=== PATIENT | male | born 1960 | race Caucasian/White ===

== ENCOUNTER 2020-01-12 09:34 | Outpatient (CLI) | payer MEDICARE, BC, SELFPAY ==
[2020-01-12 10:08] LABS: Creatinine Urine 101.9 mg/dL; Total Protein Urine Random 153 mg/dL
[2020-01-12 10:14] LABS: Albumin Level 4.5 g/dL (3.5-5.1); Blood Urea Nitrogen 27 mg/dL (9-20); Calcium 9.5 mg/dL (8.4-10.2); Carbon Dioxide 29 mmol/L (22-30); Chloride 105 mmol/L (98-107); Estimated Glomerular Filt Rate 36; Glucose 159 mg/dL (75-110); Phosphorus 3.5 mg/dL (2.5-4.5); Potassium 4.5 mmol/L (3.4-5.0); Sodium 142 mmol/L (137-145)
[2020-01-12 10:24] LABS: Parathyroid Intact 116.8 pg/mL (7.5-53.5)
== END 2020-01-12 09:35 | disposition home or self-care (01) ==
PROVIDERS: PCP Family Medicine; Visit Provider Internal Medicine Nephrology
DX: N18.3 Chronic kidney disease, stage 3 (moderate) (principal)
CPT/HCPCS: 36415; 80069; 82306; 82570; 83970; 84156

== ENCOUNTER 2020-07-03 12:33 | Outpatient (CLI) | payer MEDICARE, BC, SELFPAY ==
[2020-07-03 13:16] LABS: Creatinine Urine 105.8 mg/dL; Total Protein Urine Random 97 mg/dL
[2020-07-03 13:23] LABS: Alanine Aminotransferase 34 U/L (4-50); Albumin Level 4.6 g/dL (3.5-5.1); Anion Gap 10 mmol/L (8-16); Blood Urea Nitrogen 34 mg/dL (9-20); Calcium 9.7 mg/dL (8.4-10.2); Carbon Dioxide 29 mmol/L (22-30); Chloride 106 mmol/L (98-107); Cholesterol 109 mg/dL (0-200); Estimated Glomerular Filt Rate 34; Glucose 127 mg/dL (75-110); HDL Direct 31 mg/dL; Phosphorus 3.7 mg/dL (2.5-4.5); Potassium 4.6 mmol/L (3.4-5.0); Sodium 145 mmol/L (137-145); Triglycerides 267 mg/dL (<150)
[2020-07-03 13:33] LABS: LDL Cholesterol Direct 36 mg/dL
== END 2020-07-03 12:34 | disposition home or self-care (01) ==
LOC: ANHLAB 12:38
PROVIDERS: PCP Family Medicine; Visit Provider Internal Medicine Nephrology
DX: N18.30 Chronic kidney disease, stage 3 unspecified (principal); E78.5 Hyperlipidemia, unspecified
CPT/HCPCS: 36415; 80061; 80069; 82570; 84156; 84460

== ENCOUNTER 2021-08-27 15:22 | Outpatient (RCR) | payer MEDICARE, SELFPAY ==
--- NOTE | 2021-08-27 16:49 | REHOPWC ---
SEATING EVALUATION NOTIFICATION This is to notify provider that Akash Gifford participated in a power mobility device evaluation today. Recommendations were made specific to patient's needs. Seating Assessment documentation has been completed for detailed information on required equipment. The mobility device provider for this case is Tala from [facility]. Please note that no further care plan will be developed on this account. Thank you for referring this patient to [facility]. Please review, sign, date and return this discharge summary LASHAUN. I have been updated about the patient's current status and I agree with discharge from the above service at this time. Referring Physician Date
== END 2021-08-28 12:02 | disposition home or self-care (01) ==
LOC: ANHPT 15:22
PROVIDERS: PCP Family Medicine
DX: S14.109D Unspecified injury at unspecified level of cervical spinal cord, subsequent encounter (principal); I10 Essential (primary) hypertension; N28.9 Disorder of kidney and ureter, unspecified; Z99.3 Dependence on wheelchair
CPT/HCPCS: 97163

== ENCOUNTER → 2021-11-22 13:23 | Outpatient (CLI) | payer MEDICARE, SELFPAY ==
--- NOTE | ~2021-11-22 | XR_ITS ---
EXAMINATION: XR ankle LT 2V DATE: 11/22/2021 13:54 INDICATION: Left ankle pain TECHNIQUE: Anteroposterior, oblique, mortise, and lateral views of the left ankle were obtained. COMPARISON: None. FINDINGS: Alignment is normal. No fracture. Mild osteoarthritis at the second tarsal metatarsal and first metat arsophalangeal joints. Moderate-sized Achilles calcaneal spur. Small plantar calcaneal spur and small heterotopic ossicles along the plantar aponeurosis. Diffuse soft tissue swelling with subcutaneous e piedad about the ankle and extending over the dorsum of the foot. No left ankle joint effusion. IMPRESSION: 1. Mild degenerative changes as detailed above. No acute osseous abnormality. Reviewed, dictated and finalized at location B.
== END ==
PROVIDERS: PCP Family Medicine; Visit Provider Nurse Practitioner Family
DX: M25.572 Pain in left ankle and joints of left foot (principal)
CPT/HCPCS: 73600

== ENCOUNTER 2022-06-27 07:28 | Outpatient (CLI) | payer MEDICARE, SELFPAY ==
--- NOTE | 2022-07-27 15:39 | WPDSLEEPSTUD ---
Sleep Study Date of Study: 06/27/22 Ordering Provider: ASHLI Pelletier Interpreting Physician: Mariluz Ordoñez DO Sleep Study Type: BiPAP Titration Height: 1.83 m Weight: 113.398 kg Body Mass Index: 33.9 Neck Circumference (inches): 16.5 [place]: 12 Reason for Sleep Study Air hunger with CPAP use. On 02/2017, he had a Split night PSG that showed an AHI of 105. Adequate titration of CPAP to [id number] improved AHI to 2.2. He was later changed to APAP 8-16 cm H2O because he felt like he wasn't getting enough air. It was then changed to APAP 10-20 cm H2O. He still has the same complaint. Sleep History The patient is a 61-year-old male with hypertension, hyperlipidemia, chronic kidney disease, history of deep venous thrombosis, history of tobacco use and sleep apnea that had a sleep study ordered by the pulmonary group for evaluation of the patient's air hunger. The patient denies awakening from sleep short of breath. He denies awakening at night with heartburn, belching or cough. He frequently snores loud enough that others complain. He frequently has trouble sleeping when he has a cold. He denies waking up gasping for air throughout the night. He frequently has breathing problems at night observed by himself or others. He denies sweating excessively at night. He denies having heart palpitations or irregular heartbeats during the night. He occasionally falls asleep during the day but never while driving. He denies sleep paralysis, cataplexy and hypnagogic / hypnopompic hallucinations. He denies having trouble at school or work due to sleepiness. He denies feeling afraid of going to sleep. He denies having nightmares and denies remembering his dreams. He denies having thoughts racing through his mind. He rarely feels sad, depressed or anxious. He occasionally has muscular tension. He rarely notices parts of his body jerk. He occasionally kicks during the night. He rarely has crawling and aching feelings in his legs and rarely has leg pain during the night. He denies grinding his teeth during sleep and rarely awakens with morning jaw pain. He is rarely bothered by pain during the day and rarely awakened by pain during the night. He frequently wakes up feeling stiff in the morning. He frequently wakes up with sore achy muscles. He occasionally wakes up the patient, spine or other joints. He goes to bed between 10 to 10:30 p.m. on both weekdays and weekends. The amount of time it takes for him to fall sleep is variable. He wakes up 2-3 times throughout the night to urinate. He can take in 1-2 hours to fall back asleep. He wakes up at 7:00 a.m. on weekdays and between 7-8 a.m. on the weekends. He typically gets 3-4 hours of sleep per night. He will stay in bed for 1-2 hours after waking up in the morning. He currently lives alone. He does not consume any caffeinated beverages within 2 hours of bedtime. He does not engage in physical exercise before bedtime. He will watch television before falling asleep. He will take naps in the afternoon or the evening and they are refreshing. He drinks caffeinated iced tea throughout the day. He is a former smoker. He denies alcohol and recreational drug use. [facility] Past Medical History Medical History Acute embolism and thrombosis of unspecified deep veins of distal lower extremity, bilateral Adult BMI 36.0-36.9 kg/sq m BMI 37.0-37.9, adult Body mass index [BMI] 32.0-32.9, adult (09/21/18) Body mass index [BMI] 36.0-36.9, adult (04/22/18) Body mass index [BMI] 38.0-38.9, adult (04/27/19) Chronic kidney disease, unspecified Decreased platelet count Decreased renal function Dietary counseling and surveillance (10/18/15) Dizziness Elevated fasting glucose Encounter for screening colonoscopy Essential (primary) hypertension High triglycerides History of DVT (deep vein thrombosis) Hyperlipidemia Hypertension Low kidney funct
[2022-07-27 15:53] VITALS: BMI 33.9
--- NOTE | 2023-08-21 13:08 | SLEEP ---
new call on [id number]
== END 2022-06-28 06:36 | disposition home or self-care (01) ==
PROVIDERS: PCP Family Medicine; Visit Provider Physician Assistant
DX: G47.33 Obstructive sleep apnea (adult) (pediatric) (principal); Z87.891 Personal history of nicotine dependence
CPT/HCPCS: 95811

== ENCOUNTER 2023-07-29 06:18 | Outpatient (CLI) | payer MEDICARE, SELFPAY ==
--- NOTE | 2023-08-21 15:58 | WPDSLEEPSTUD ---
Sleep Study Date of Study: 07/29/23 Ordering Provider: ASHLI Pelletier Interpreting Physician: Leigh Hall MD Sleep Study Type: Polysomnogram Height: 1.83 m Weight: 111.13 kg Body Mass Index: 33.2 Neck Circumference (inches): 13.5 [place]: 8 Reason for Sleep Study Known obstructive sleep apnea, re-evaluation for Inspire device * 02/2017 - Split night PSG - Severe REBEKA with AHI 105. Adequate titration of CPAP to [id number] improved AHI to 2.2. Sleep History Akash Gifford is a 62-year-old male with hypertension, hyperlipidemia, chronic kidney disease, history of deep venous thrombosis, history of tobacco use and sleep apnea. The response to [facility] sleep questionnaire from his 06/27/2022 study are used in this report. He had severe obstructive sleep apnea on a sleep study in 2016, the apnea-hypopnea index was 105. He had a difficult time tolerating auto PAP, had a in-lab PAP titration on June 27, 2022 with recommended pressures of 19/15. He had a difficult time tolerating this pressure; it was decreased to BiPAP 17/13 with adjustments in his humidity. He does not awaken from sleep feeling short of breath. He dose not awake at night with heartburn, belching or cough. He frequently snores loudly enough that others complain. He frequently has trouble sleeping when he has a cold. He denies waking up gasping for air at night. He frequently has breathing problems at night. He denies sweating excessively at night. He denies having heart palpitations or irregular heartbeats during the night. He occasionally falls asleep during the day but never while driving. He denies having muscle weakness with strong emotion, feeling paralyzed on waking or falling asleep and he denies vivid dreamlike scenes upon waking or upon falling asleep. He denies having daytime difficulties at work due to sleepiness. He is not afraid to go to sleep. He denies having nightmares and denies remembering his dreams. He denies having thoughts racing through his mind. He rarely feels sad, depressed or anxious. He occasionally has muscular tension. He rarely notices parts of his body jerk. He occasionally kicks during the night. He rarely has crawling and aching feelings in his legs and rarely has leg pain during the night. He denies grinding his teeth during sleep and rarely awakens with morning jaw pain. He is rarely bothered by pain during the day and rarely awakened by pain during the night. He frequently wakes up feeling stiff in the morning. He frequently wakes up with sore achy muscles. He occasionally wakes up the patient, spine or other joints. He goes to bed between 10:00 p.m. to 10:30 p.m. on both weekdays and weekends. The amount of time it takes for him to fall sleep is variable. He wakes up 2-3 times throughout the night to urinate. he may require 1-2 hours to return to sleep. He wakes up at 7:00 a.m. on weekdays and between 7:00 a.m.-8:00 a.m. on the weekends. He typically gets 3-4 hours of sleep per night. He takes naps in the afternoon or the evening. A short nap can be refreshing. Habits: Tobacco: former smoker. Caffeine: caffeinated iced tea throughout the day. Alcohol: none Recreational substances: none PMFSH Past Medical History Medical History Acute embolism and thrombosis of unspecified deep veins of distal lower extremity, bilateral Adult BMI 36.0-36.9 kg/sq m BMI 37.0-37.9, adult Body mass index [BMI] 32.0-32.9, adult (09/21/18) Body mass index [BMI] 36.0-36.9, adult (04/22/18) Body mass index [BMI] 38.0-38.9, adult (04/27/19) Chronic kidney disease, unspecified Decreased platelet count Decreased renal function Dietary counseling and surveillance (10/18/15) Dizziness Elevated fasting glucose Encounter for screening colonoscopy Essential (primary) hypertension H/O cataract High triglycerides History of DVT (deep vein thrombosis) Hyperlipidemia Hypertension Low kidney
[2023-08-21 16:03] VITALS: BMI 33.2
== END 2023-07-30 07:34 | disposition home or self-care (01) ==
LOC: ANHCSM 06:18
PROVIDERS: PCP Family Medicine; Visit Provider Physician Assistant
DX: G47.33 Obstructive sleep apnea (adult) (pediatric) (principal); R06.83 Snoring; I10 Essential (primary) hypertension
CPT/HCPCS: 95810

== ENCOUNTER 2024-01-20 09:21 | Outpatient (CLI) | payer MEDICARE, SELFPAY ==
[2024-02-10 19:22] VITALS: BMI 32.5
--- NOTE | 2024-02-10 19:22 | WPDSLEEPSTUD ---
Sleep Study Date of Study: 01/20/24 Ordering Provider: ASHLI Pelletier Interpreting Physician: Mariluz Ordoñez DO Sleep Study Type: Polysomnogram Height: 1.83 m Weight: 108.862 kg Body Mass Index: 32.5 Neck Circumference (inches): 13.5 [place]: 24 Reason for Sleep Study The patient had a polysomnogram on 07/29/2023 that showed an overall AHI of 4.6 with desaturation down to 86%. Previously diagnosed with severe REBEKA (AHI>100 in 2017). On PAP Therapy but wanted to look into Inspire. Sleep History Akash Gifford is a 63-year-old male with hypertension, hyperlipidemia, chronic kidney disease, history of deep venous thrombosis, history of tobacco use and sleep apnea. The response to [facility] sleep questionnaire from his 06/27/2022 study are used in this report. He had severe obstructive sleep apnea on a sleep study in 2017, the apnea-hypopnea index was 105. He had a difficult time tolerating auto PAP, had a in-lab PAP titration on June 27, 2022 with recommended pressures of 19/15. He had a difficult time tolerating this pressure; it was decreased to BiPAP 17/13 with adjustments in his humidity. He does not awaken from sleep feeling short of breath. He dose not awake at night with heartburn, belching or cough. He frequently snores loudly enough that others complain. He frequently has trouble sleeping when he has a cold. He denies waking up gasping for air at night. He frequently has breathing problems at night. He denies sweating excessively at night. He denies having heart palpitations or irregular heartbeats during the night. He occasionally falls asleep during the day but never while driving. He denies having muscle weakness with strong emotion, feeling paralyzed on waking or falling asleep and he denies vivid dreamlike scenes upon waking or upon falling asleep. He denies having daytime difficulties at work due to sleepiness. He is not afraid to go to sleep. He denies having nightmares and denies remembering his dreams. He denies having thoughts racing through his mind. He rarely feels sad, depressed or anxious. He occasionally has muscular tension. He rarely notices parts of his body jerk. He occasionally kicks during the night. He rarely has crawling and aching feelings in his legs and rarely has leg pain during the night. He denies grinding his teeth during sleep and rarely awakens with morning jaw pain. He is rarely bothered by pain during the day and rarely awakened by pain during the night. He frequently wakes up feeling stiff in the morning. He frequently wakes up with sore achy muscles. He occasionally wakes up the patient, spine or other joints. He goes to bed between 10:00 p.m. to 10:30 p.m. on both weekdays and weekends. The amount of time it takes for him to fall sleep is variable. He wakes up 2-3 times throughout the night to urinate. He may require 1-2 hours to return to sleep. He wakes up at 7:00 a.m. on weekdays and between 7:00 a.m.-8:00 a.m. on the weekends. He typically gets 3-4 hours of sleep per night. He takes naps in the afternoon or the evening. A short nap can be refreshing. Habits: Tobacco: former smoker. Caffeine: caffeinated iced tea throughout the day. Alcohol: none Recreational substances: none PMFSH Past Medical History Medical History Acute embolism and thrombosis of unspecified deep veins of distal lower extremity, bilateral Adult BMI 36.0-36.9 kg/sq m BMI 37.0-37.9, adult Body mass index [BMI] 32.0-32.9, adult (09/21/18) Body mass index [BMI] 36.0-36.9, adult (04/22/18) Body mass index [BMI] 38.0-38.9, adult (04/27/19) Chronic kidney disease, unspecified Decreased platelet count Decreased renal function Dietary counseling and surveillance (10/18/15) Dizziness Elevated fasting glucose Encounter for screening colonoscopy Essential (primary) hypertension H/O cataract High triglycerides History of DVT (deep vein thrombosis
== END 2024-01-21 07:19 | disposition home or self-care (01) ==
LOC: ANHCSM 09:21
PROVIDERS: PCP Family Medicine; Visit Provider Physician Assistant
DX: G47.33 Obstructive sleep apnea (adult) (pediatric) (principal); I10 Essential (primary) hypertension
CPT/HCPCS: 95810

== ENCOUNTER → 2024-01-28 13:47 | Outpatient (RCR) | payer MEDICARE, SELFPAY | END | disposition home or self-care (01) | LOC: ANHEH 12-30 09:50 | DX: Z46.1 Encounter for fitting and adjustment of hearing aid (principal) | CPT/HCPCS: 92557 ==

== ENCOUNTER 2024-06-14 01:03 | Day surgery (SDC) | payer MEDICARE, SELFPAY ==
[2024-06-10 10:48] VITALS: BMI 32.5
--- NOTE | 2024-06-10 11:30 | PC.NURSE ---
Spoke with patient regarding medication Eliquis. Pt. verbalizes understanding that the last dose of Eliquis is to be taken on 06/11/2024 and the Endoscopist will instruct them when to restart after the procedure.
--- NOTE | 2024-06-13 15:19 | P.PNAN_ITS ---
Anes - Eval Pre Procedure Procedure: Operation Date: 06/14/24 14:30 Proposed Procedures p Screening Colonoscopy - Juan Mtz MD Date/Time: 06/13/24 15:19 Pre Op Diagnosis: history of polyps Patient Data Age: 63 Gender: M Height: 1.83 m Weight: 108.9 kg Allergies Allergy/AdvReac Type Severity Reaction Status Date / Time Penicillins Allergy Unknown Unknown Verified 06/10/24 10:42 Sulfa (Sulfonamide Allergy Unknown CHILD Verified 06/10/24 10:42 Antibiotics) sulfanilamide Allergy Unknown Unknown Verified 06/10/24 10:42 Home Medications Medication Instructions Recorded Confirmed Type cholecalciferol (vitamin D3) 10 10 mcg PO BID 07/04/21 06/12/24 History mcg (400 unit) capsule berberine-herbal comb no.18 capsule 3 cap PO DAILY 04/15/23 06/12/24 History lisinopril 40 mg tablet See Rx Instructions .Route 08/06/23 06/12/24 Rx .COMPLEX #90 tabs dapagliflozin propanediol 10 mg 10 mg PO DAILY #90 tabs 09/22/23 06/12/24 Rx tablet (Farxiga) rosuvastatin 40 mg tablet See Rx Instructions .Route 12/10/23 06/12/24 Rx .COMPLEX #90 tabs apixaban 5 mg tablet (Eliquis) See Rx Instructions .Route 03/09/24 06/12/24 Rx .COMPLEX #180 tabs aspirin 81 mg tablet,delayed See Rx Instructions .Route 03/09/24 06/12/24 Rx release .COMPLEX #90 tabs dulaglutide 1.5 mg/0.5 mL See Rx Instructions .Route 05/21/24 06/12/24 Rx subcutaneous pen injector .COMPLEX #4 mL (Trulicity) levofloxacin 250 mg tablet 250 mg PO DAILY #10 tabs 06/11/24 Rx Patient hx anesthesia problems: none Family hx anesthesia problems: none Results Review: All pre-operative results and documents have been reviewed as part of the pre- operative evaluation. [facility] Past Medical History Medical History Acute embolism and thrombosis of unspecified deep veins of distal lower extremity, bilateral Body mass index [BMI] 36.0-36.9, adult (04/22/18) Body mass index [BMI] 38.0-38.9, adult (04/27/19) Chronic kidney disease, unspecified Colon polyps Decreased platelet count Decreased renal function Dietary counseling and surveillance (10/18/15) Dizziness Elevated fasting glucose Encounter for screening colonoscopy Encounter for screening for malignant neoplasm of prostate Essential (primary) hypertension H/O cataract High triglycerides History of DVT (deep vein thrombosis) Hyperlipidemia Hypertension Low kidney function Microalbuminuria Mixed hyperlipidemia Obstructive sleep apnea (adult) (pediatric) Screening for malignant neoplasm of prostate Screening for thyroid disorder Screening for thyroid disorder Scrotal pain Sleep apnea SOB (shortness of breath) on exertion Surgical History Surgical History Hx of colonoscopy Family History Family History Father Carcinoma of colon Family history of Alzheimer's disease Mother Alzheimers disease Sibling No problems noted. Other Family history of lung cancer Social History Social History Smoking packs per day: 1 Smoking cigarettes per day: 20.0 Years smoked: 5 Smoking pack-years: 5.00 Smoking status: Former smoker Tobacco type: cigarettes and pipe Second hand tobacco smoke exposure: Yes Smoking end date: 08/18/88 Alcohol intake: never Substance use: never Substance use type: does not use Do You Feel Safe in your Home?: Yes Lack of Transportation: No Lack of Food: Never True Current Housing: I Have Housing Concerned About Future Housing: No Difficulty Paying Gas/Electric Bills: No Difficulty Paying for Meds: No Currently Unemployed: No Education: Associate Degree Difficulty w/ Childcare or Family Care: No Living arrangements: alone Occupation/Education: retired Additional occupation/education comments: [employer]-retired, [employer] grounds keeping, [employer]. Gender identity (if verbalized by the patient): Male Exam Day of Procedure 06/13/24 15:19
[2024-06-14 13:00] VITALS: BP 112/67; PULSE 76; RESP 16; TEMP 35.6; O2SAT 96; BMI 32.0
[2024-06-14 13:09] LABS: Glucose Point of Care 108 mg/dl (65-105)
[2024-06-14] MEDS: LACTATED RINGERS 1,000 ML 150 ML IV CONT (13:16)
--- NOTE | 2024-06-14 13:23 | WPDANESEPPF ---
Anes - Initial Pre Proc Eval Procedure: Operation Date: 06/14/24 14:30 Proposed Procedures p Screening Colonoscopy - Juan Mtz MD Date/Time: 06/14/24 13:23 Surgeon: Juan Mtz MD Pre Op Diagnosis: history of polyps Patient Data Age: 63 Gender: M Height: 1.83 m Weight: 107 kg Last Vital Signs Temp 35.6 C L 06/14/24 13:00 Pulse 76 06/14/24 13:00 Resp 16 06/14/24 13:00 BP 112/67 06/14/24 13:00 Pulse Ox 96 06/14/24 13:00 O2 Del Method Room Air 06/14/24 13:00 Allergies Allergy/AdvReac Type Severity Reaction Status Date / Time Penicillins Allergy Unknown Unknown Verified 06/14/24 12:57 Sulfa (Sulfonamide Allergy Unknown CHILD Verified 06/14/24 12:57 Antibiotics) sulfanilamide Allergy Unknown Unknown Verified 06/14/24 12:57 Home Medications Medication Instructions Recorded Confirmed Type cholecalciferol (vitamin D3) 10 10 mcg PO BID 07/04/21 06/14/24 History mcg (400 unit) capsule berberine-herbal comb no.18 capsule 3 cap PO DAILY 04/15/23 06/14/24 History lisinopril 40 mg tablet See Rx Instructions .Route 08/06/23 06/14/24 Rx .COMPLEX #90 tabs dapagliflozin propanediol 10 mg 10 mg PO DAILY #90 tabs 09/22/23 06/14/24 Rx tablet (Farxiga) rosuvastatin 40 mg tablet See Rx Instructions .Route 12/10/23 06/14/24 Rx .COMPLEX #90 tabs apixaban 5 mg tablet (Eliquis) See Rx Instructions .Route 03/09/24 06/14/24 Rx .COMPLEX #180 tabs aspirin 81 mg tablet,delayed See Rx Instructions .Route 03/09/24 06/14/24 Rx release .COMPLEX #90 tabs dulaglutide 1.5 mg/0.5 mL See Rx Instructions .Route 05/21/24 06/14/24 Rx subcutaneous pen injector .COMPLEX #4 mL (Trulicity) levofloxacin 250 mg tablet 250 mg PO DAILY #10 tabs 06/11/24 06/14/24 Rx Laboratory Tests 06/14/24 13:06 POC Capillary Glucose 108 H mg/dl (65-105) Patient hx anesthesia problems: none Family hx anesthesia problems: none Results Review: All pre-operative results and documents have been reviewed as part of the pre-operative evaluation. [facility] Past Medical History Medical History Acute embolism and thrombosis of unspecified deep veins of distal lower extremity, bilateral Body mass index [BMI] 36.0-36.9, adult (04/22/18) Body mass index [BMI] 38.0-38.9, adult (04/27/19) Chronic kidney disease, unspecified Colon polyps Decreased platelet count Decreased renal function Dietary counseling and surveillance (10/18/15) Dizziness Elevated fasting glucose Encounter for screening colonoscopy Encounter for screening for malignant neoplasm of prostate Essential (primary) hypertension H/O cataract High triglycerides History of DVT (deep vein thrombosis) Hyperlipidemia Hypertension Low kidney function Microalbuminuria Mixed hyperlipidemia Obstructive sleep apnea (adult) (pediatric) Screening for malignant neoplasm of prostate Screening for thyroid disorder Screening for thyroid disorder Scrotal pain Sleep apnea SOB (shortness of breath) on exertion Surgical History Surgical History Hx of colonoscopy Family History Family History Father Carcinoma of colon Family history of Alzheimer's disease Mother Alzheimers disease Sibling No problems noted. Other Family history of lung cancer Social History Social History Smoking packs per day: 1 Smoking cigarettes per day: 20.0 Years smoked: 5 Smoking pack-years: 5.00 Smoking status: Former smoker Tobacco type: cigarettes and pipe Second hand tobacco smoke exposure: Yes Smoking end date: 08/18/88 Alcohol intake: never Substance use: never Substance use type: does not use Do You Feel Safe in your Home?: Yes Lack of Transportation: No Lack of Food: Never True Current Housing: I Have Housing Concerned About Future Housing: No Difficulty Paying Gas/Electric Bills: No Difficulty Paying for Meds: No Currently Unemployed: No Education: Associate Degree Difficulty w/ Childcare or Family Care: No Living arrangements: alone Occupation/Education: retired Additional occupation/education 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 Gender identity (if verbalized by the patient): Male Anes - Eval Final PreProcedure Day of Procedure 06/14/24 13:23 Patient weight: obese Heart: regular rate and rhythm Lungs: decreased breath sounds Airway: Mallampati scale class II Neurological: alert and oriented Last oral intake: >/= 8 hours ASA classification: III Emergent: no Anesthetic plan: proceed Anesthesia type and monitoring: general GIVS and standard monitoring Results Review: All pre-operative results and documents have been reviewed as part of the pre-operative evaluation. Informed Consent: The patient's anesthetic plan and its attendant risks and benefits were discussed with the patient/family/POA. Questions were solicited and answers provided to the satisfaction of the patient/family/POA.
--- NOTE | 2024-06-14 13:45 | P.HP_ITS ---
History of Present Illness History of Present Illness Consent: Risks, benefits, and alternatives have been discussed and questions answered. Patient agrees to proceed with procedure. Chief complaint: history of polyps Narrative: Akash Gifford is a 63 year old male with colon polyp 5 years ago Review of Systems Review of Systems: All systems reviewed & are unremarkable except as noted in HPI and below PMFSH Past Medical History Medical History Acute embolism and thrombosis of unspecified deep veins of distal lower extremity, bilateral Body mass index [BMI] 36.0-36.9, adult (04/22/18) Body mass index [BMI] 38.0-38.9, adult (04/27/19) Chronic kidney disease, unspecified Colon polyps Decreased platelet count Decreased renal function Dietary counseling and surveillance (10/18/15) Dizziness Elevated fasting glucose Encounter for screening colonoscopy Encounter for screening for malignant neoplasm of prostate Essential (primary) hypertension H/O cataract High triglycerides History of DVT (deep vein thrombosis) Hyperlipidemia Hypertension Low kidney function Microalbuminuria Mixed hyperlipidemia Obstructive sleep apnea (adult) (pediatric) Screening for malignant neoplasm of prostate Screening for thyroid disorder Screening for thyroid disorder Scrotal pain Sleep apnea SOB (shortness of breath) on exertion Surgical History Surgical History Hx of colonoscopy Family History Family History Father Carcinoma of colon Family history of Alzheimer's disease Mother Alzheimers disease Sibling No problems noted. Other Family history of lung cancer Social History Social History Smoking packs per day: 1 Smoking cigarettes per day: 20.0 Years smoked: 5 Smoking pack-years: 5.00 Smoking status: Former smoker Tobacco type: cigarettes and pipe Second hand tobacco smoke exposure: Yes Smoking end date: 08/18/88 Alcohol intake: never Substance use: never Substance use type: does not use Do You Feel Safe in your Home?: Yes Lack of Transportation: No Lack of Food: Never True Current Housing: I Have Housing Concerned About Future Housing: No Difficulty Paying Gas/Electric Bills: No Difficulty Paying for Meds: No Currently Unemployed: No Education: Associate Degree Difficulty w/ Childcare or Family Care: No Living arrangements: alone Occupation/Education: retired Additional occupation/education comments: [employer]-retired, [employer] grounds keeping, [employer]. Gender identity (if verbalized by the patient): Male Meds Home Medications and Allergies Home Medications Medication Instructions Recorded Confirmed Type cholecalciferol (vitamin D3) 10 10 mcg PO BID 07/04/21 06/14/24 History mcg (400 unit) capsule berberine-herbal comb no.18 capsule 3 cap PO DAILY 04/15/23 06/14/24 History lisinopril 40 mg tablet See Rx Instructions .Route 08/06/23 06/14/24 Rx .COMPLEX #90 tabs dapagliflozin propanediol 10 mg 10 mg PO DAILY #90 tabs 09/22/23 06/14/24 Rx tablet (Farxiga) rosuvastatin 40 mg tablet See Rx Instructions .Route 12/10/23 06/14/24 Rx .COMPLEX #90 tabs apixaban 5 mg tablet (Eliquis) See Rx Instructions .Route 03/09/24 06/14/24 Rx .COMPLEX #180 tabs aspirin 81 mg tablet,delayed See Rx Instructions .Route 03/09/24 06/14/24 Rx release .COMPLEX #90 tabs dulaglutide 1.5 mg/0.5 mL See Rx Instructions .Route 05/21/24 06/14/24 Rx subcutaneous pen injector .COMPLEX #4 mL (Trulicity) levofloxacin 250 mg tablet 250 mg PO DAILY #10 tabs 06/11/24 06/14/24 Rx Allergies Allergy/AdvReac Type Severity Reaction Status Date / Time Penicillins Allergy Unknown Unknown Verified 06/14/24 12:57 Sulfa (Sulfonamide Allergy Unknown CHILD Verified 06/14/24 12:57 Antibiotics) sulfanilamide Allergy Unknown Unknown Verified 06/14/24 12:57 Vital Signs Vital Signs - 24 hr 06/14/24 13:00 Temperature 96.1 F L Pulse Rate 76 Respiratory Rate 16 Blood Pressure 112/67 Pulse Oximetry 96 Oxygen Delivery Room Air Exam Const: General: comfortable and no acute distress HENMT: Face/Nose/Sinus: Normal nares present Eyes: General: appearance normal, both eyes and all related structures Neck: Neck: no JVD Resp: Auscultation: clear to auscultation bilaterally Cardio: Rate: regular rate Rhythm: regular rhythm GI: Inspection: non-distended GI Palp: Yes Soft to palpation Skin: General skin exam: normal color Neuro: General: gait normal Speech: normal speech Extrem: General: normal to inspection Psych: Mental Status: mental status grossly normal Assessment and Plan Assessment and plan (1) Colon polyps: Code(s): K63.5 - Polyp of colon Status: Acute Assessment and Plan: colonoscopy
[2024-06-14 14:12] VITALS: BP 93/61; PULSE 87; RESP 15; O2SAT 96
--- NOTE | 2024-06-14 14:13 | SUR.OPER ---
Polyp not retrieved. Dr Day aware, no new orders received.
[2024-06-14 14:22] VITALS: BP 109/61; PULSE 88; RESP 15; O2SAT 96
[2024-06-14 14:32] VITALS: BP 112/69; PULSE 82; RESP 19; O2SAT 99
== END 2024-06-14 14:45 | disposition home or self-care (01) ==
PROVIDERS: PCP Family Medicine; Referring Provider Nurse Practitioner Adult Health; Visit Provider Internal Medicine Gastroenterology
PROC: 0DJD8ZZ Inspection of Lower Intestinal Tract, Via Natural or Artificial Opening Endoscopic (ICD-10-PCS; CPT 45378; principal; 2024-06-14 14:30)
DX: Z12.11 Encounter for screening for malignant neoplasm of colon (principal); K63.5 Polyp of colon; K64.8 Other hemorrhoids; K57.30 Diverticulosis of large intestine without perforation or abscess without bleeding; I12.9 Hypertensive chronic kidney disease with stage 1 through stage 4 chronic kidney disease, or unspecified chronic kidney disease; N18.9 Chronic kidney disease, unspecified; E78.2 Mixed hyperlipidemia; G47.33 Obstructive sleep apnea (adult) (pediatric); E66.9 Obesity, unspecified; Z68.32 Body mass index [BMI] 32.0-32.9, adult; Z79.84 Long term (current) use of oral hypoglycemic drugs; Z79.01 Long term (current) use of anticoagulants; Z79.82 Long term (current) use of aspirin; Z79.85 Long-term (current) use of injectable non-insulin antidiabetic drugs; Z87.891 Personal history of nicotine dependence; Z86.718 Personal history of other venous thrombosis and embolism; Z80.0 Family history of malignant neoplasm of digestive organs; Z80.1 Family history of malignant neoplasm of trachea, bronchus and lung
CPT/HCPCS: 45385; 82948; J2003; J2704; J7120

== ENCOUNTER 2025-02-14 13:28 | Outpatient (CLI) | payer MEDICARE, SELFPAY ==
--- NOTE | ~2025-02-14 | XR_ITS ---
EXAMINATION: XR shoulder RT min 2V DATE: 02/14/2025 13:57 INDICATION: Right shoulder pain TECHNIQUE: AP internally and externally rotated, AP oblique externally rotated and transscapular Y vi ews of the right shoulder were obtained. COMPARISON: None FINDINGS: Normal alignment. No fracture.Mild glenohumeral and acromial clavicular osteoarthritis. Small degene rative loose body first heterotopic ossicle at the cephalad aspect of the acromioclavicular joint. Mo derate sized subacromial spur. Osseous excrescence along the posterior facet of the greater tuberosit y, likely an enthesophyte or heterotopic ossification related to old trauma at the humeral insertion of the teres minor tendon. Visualized portion of the right lung are clear. Soft tissues are unremarka ble. IMPRESSION: 1. Mild right glenohumeral and acromioclavicular osteoarthritis. 2. Enthesophyte versus heterotopic ossification related to old trauma at the humeral insertion of the teres minor tendon. Reviewed, dictated and finalized at location [facility]. IMPRESSION: 1. Mild right glenohumeral and acromioclavicular osteoarthritis. 2. Enthesophyte versus heterotopic ossification related to old trauma at the hu meral insertion of the teres minor tendon.
== END 2025-02-14 13:29 | disposition home or self-care (01) ==
LOC: MICIMG 13:31
PROVIDERS: PCP Nurse Practitioner Adult Health; Visit Provider Nurse Practitioner Adult Health
DX: M19.011 Primary osteoarthritis, right shoulder (principal); M75.91 Shoulder lesion, unspecified, right shoulder; M67.813 Other specified disorders of tendon, right shoulder
CPT/HCPCS: 73030

== ENCOUNTER 2025-03-18 08:36 | Outpatient (CLI) | payer MEDICARE, SELFPAY ==
--- NOTE | ~2025-03-18 | MR_ITS ---
MRI of the right shoulder Technique: Axial proton-density fat-sat images, coronal proton density fat-sat and T2 fat-sat images, and sagittal T1-weighted and T2 fat-sat images were acquired. Clinical History: Other lesion median nerve Findings: There is moderate to advanced AC joint degenerative change with prominent bony productive c hange. Coracoclavicular, coracoacromial, and coracohumeral ligaments appear intact. There is complete, full-thickness tear involving the entirety of the supraspinatus tendon, with fluid -filled gap measuring approximately 3.0 x 4.4 cm in extent. There is severe tendinosis of the infrasp inatus tendon which otherwise appears to be intact. Subscapularis tendon is intact with moderate to s evere tendinosis. Tendon of long head of the biceps is intact. No definite labral tear seen. Inferior glenohumeral ligament is intact. There is glenohumeral joint effusion with fluid passing thr ough the rotator cuff defect into the subacromial/subdeltoid bursa. No degenerative change of the gle nohumeral joint. No muscle atrophy or edema evident. Impression: Complete, full-thickness tear of the entire supraspinatus tendon, as detailed above. Advanced AC joint degenerative change. Severe tendinosis of the infraspinatus tendon. Reviewed, dictated and finalized at [facility]. Impression: Complete, full-thickness tear of the entire supraspinatus tendon, as detailed a pk. Advanced AC joint degenerative change. Severe tendinosis of the infraspinatus tendon.
== END 2025-03-18 08:37 | disposition home or self-care (01) ==
LOC: MICIMG 08:36
PROVIDERS: PCP Nurse Practitioner Adult Health; Visit Provider Nurse Practitioner Adult Health
DX: S46.021A Laceration of muscle(s) and tendon(s) of the rotator cuff of right shoulder, initial encounter (principal); M75.51 Bursitis of right shoulder; M19.011 Primary osteoarthritis, right shoulder; M75.32 Calcific tendinitis of left shoulder; G56.11 Other lesions of median nerve, right upper limb
CPT/HCPCS: 73221